=== PATIENT | male | born 1945 | race Caucasian/White ===

== ENCOUNTER → 2018-02-03 | Outpatient (CLI) | payer OTHER, BC ==
[~2018-02-03] VITALS: Ht 170.2 cm; Wt 98.1 kg
[~2018-02-03] MED LIST: AMLODIPINE BESY10 MG PO; ASPIR 8181 MG PO; COREG25 MG PO; GLUCOPHAGE1000 MG PO; HYDROCODONE-AP1 EAC6 PO; LANTUSSOLASTAR SQ; LASIX 40 MG TAB40 M2 PO; LEVOTHYROXINE0.2 M1 PO; LISINOPRIL10 MG PO; MAXZIDE-25 MG1 EACH PO; MOBIC15 MG PO; NAPROXEN375 MG PO; NEURONTIN 300300 M1 PO; NORCO 7.5-3251 EACH PO; OMEGA 3 1,0001 EACH PO; POTASSIUM20 PO; RED YEAST RICE600 MG PO; VITAMIN B122500 MCG PO; VITAMIN D32000 UNI1 PO; ZANTAC 150MG T150 MG PO
--- NOTE | ~2018-02-03 | HPC ---
[facility] [address] [place] [address] PAIN MANAGEMENT CONSULTATION Name: LIZY LIMA Room #: REG CL M..#: [id number] Admission: 02/03/18 Attend Phys: Karan Castaneda DO Discharge: Date of : 47 Report #: [id number] THIS REPORT FOR: //name// CC: Laila Castaneda DATE OF SERVICE: 02/03/2018 PAIN CLINIC NOTE The patient is a very pleasant 72-year-old gentleman being treated for lumbar radiculopathy status post decompressive laminectomy. Last seen in pain clinic on 12/08/2017. He was given a lumbar epidural injection at that time with significant improvement of baseline pain. The patient specifically notes 75% improvement for a month and a half. Pain gradually began to recur. He was able to go up and down stairs with no pain initially. Pain has begun to recur both legs and back without antecedent trauma or overuse, flare up about 4 weeks ago. He had been taking hydrocodone at night to start taking a little more frequently except to 2 or 3 a day with ongoing pain, low back, posterior thighs. Physically, he rates the pain a 5 on a VAS. Notes it is exacerbated with any and all axial loading and activity. Prior, the patient had been seen back in June 2016, single epidural injection afforded good relief at that time. PHYSICAL EXAMINATION: Notes a 72-year-old gentleman, BMI is 33.9 kilograms per meter squared, blood pressure 131/78, pulse 72, respirations 16. Rises from chair using armrest, diffuse tenderness across the low back. Gait is generally tandem, but he does have a positive straight leg raise on the right with slight decreased right hip flexion strength. He notes he has some ongoing knee pain and does have some osseous hypertrophy in the bilateral knees. Reviewing medical history, he does not have history of coronary artery disease; however, he does have multiple cardiac risk factors including hypertension and history of aortic valve replacement (bovine). ASSESSMENT: 1. Symptomatic lumbar radiculopathy status post decompressive laminectomy with ongoing lumbar radicular symptoms. Prior good relief with epidural injection in the past. 2. Osteoarthritis, bilateral knees. Discussed therapeutic options with the patient today. We have elected to start with naproxen 375 mg 1 tablet daily with coronary angioplasty versus excisional atherectomy trial. The patient uses it 3-4/7 days on a nondaily basis. Naproxen sodium tended to be the most [facility] [address] [place] [address] PAIN MANAGEMENT CONSULTATION Name: LIZY LIMA Room #: REG NELLI Parker#: [id number] Admission: 02/03/18 Attend Phys: Karan Castaneda DO Discharge: Date of : 47 Report #: [id number] cardiac friendly of the NSAID agents and any cardiac risk tended to be mitigated by nondaily use. RECOMMENDATIONS: 1. Epidural injection under fluoroscopy today at L4-L5 for the lumbar radicular pain status post decompressive laminectomy. 2. Follow up simply as needed. PROCEDURE: Lumbar epidural injection under fluoroscopy. PROCEDURE NOTE: After both written and informed consent to include risk of spinal cord damage, increased pain, weakness and dural puncture, the patient was taken to the fluoroscopy suite, placed in the prone position. After sterile prep and drape, a skin wheal with lidocaine was raised. A 22-gauge epidural Tuohy needle was inserted in the midline at L5-S1 with good loss to resistance. Negative aspiration for cerebrospinal fluid or blood was noted. Then 1 mL of Omnipaque under biplanar fluoroscopy showed good spread within the epidural space. This was followed with 80 mg of triamcinolone plus 1 mL of 1.5% preservative-free Xylocaine, 0.5 mL Xylocaine was then injected to flush the needle; it was removed. The patient was monitored for an appropriate period of time and discharged in good and stable condition. <ELECTRONICALLY SIGNED> By: Karan Castaneda DO 02/08/18 0725 1604 [id number] Karan Castaneda DO /nt
[2018-02-03 09:20] VITALS: BP 131/78
== END | disposition home or self-care (01) ==
LOC: PAIN 07:37
DX: M54.16 Radiculopathy, lumbar region (principal); G89.29 Other chronic pain; M17.0 Bilateral primary osteoarthritis of knee; I10 Essential (primary) hypertension; I25.10 Atherosclerotic heart disease of native coronary artery without angina pectoris; Z79.01 Long term (current) use of anticoagulants; Z95.2 Presence of prosthetic heart valve; Z79.82 Long term (current) use of aspirin; Z79.899 Other long term (current) drug therapy; Z98.890 Other specified postprocedural states; Z79.891 Long term (current) use of opiate analgesic

== ENCOUNTER → 2018-08-15 | Outpatient (CLI) | payer OTHER, BC ==
[~2018-08-15] VITALS: Ht 170.2 cm; Wt 99.5 kg
[~2018-08-15] MED LIST changes: +AMITRIPTYLINE H10 M3 PO; -LISINOPRIL10 MG PO; +LISINOPRIL20 MG PO; +OMEPRAZOLE 20 M20 M1 PO; +TRAMADOL 50 MG50 MG PO
--- NOTE | ~2018-08-15 | HPC ---
[facility] [address] [place] [address] PAIN MANAGEMENT CONSULTATION Name: LIZY LIMA [id number] Admission: 08/15/18 Attend Phys: Joseluis Castaneda DO Discharge: Date of : 47 Report #: [id number] THIS REPORT FOR: //name// CC: Joseluis Laers Margie DATE OF SERVICE: 08/15/2018 REFERRING PHYSICIAN: Laila Van MD. CHIEF COMPLAINT: Low back pain, lower extremity pain and paresthesias. HISTORY OF PRESENT ILLNESS: As you know, the patient is a 72-year-old male who returns today in followup visit requesting to undergo next in the series of lumbar epidural injections. The patient, as you are aware, was followed by my partner, Dr. Karan Castaneda until Dr. Castaneda discontinued practice. He was then transferred to my service to continue treatment with lumbar epidural injections. He returns today in followup visit indicating pain level of 5/10, states pain begins in low back, radiates to bilateral legs and anterior thighs. He states his pain is chronic in nature, describes the pain as constant, sharp, dull, aching, burning, numbness and tingling, exacerbated with sitting, improves with pain medications and epidural injections. He returns today in followup visit to undergo next in the series of epidural injections in hopes of improving pain. He denies new injury, new trauma or any changes in medical history since previous visits. ALLERGIES: No known drug allergies. CURRENT MEDICATIONS: Tramadol, omeprazole, amitriptyline, naproxen, hydrocodone, furosemide, gabapentin, cholecalciferol, aspirin, cyanocobalamin, omega-3 fish oil, insulin, metformin, red yeast rice extract, amlodipine, potassium, triamterene/hydrochlorothiazide, carvedilol, lisinopril and levothyroxine. SOCIAL HISTORY: The patient denies tobacco, alcohol, IV or illicit drug use. He is unaccompanied today. IMAGING: No new imaging available. PQRS: The patient has osteoarthritic changes of low back, bilateral knees. No rheumatoid arthritis. He is placing pain intensity of 5/10. He is not a fall risk, has not had a fall in the last 3 months. He is not on blood thinners. He is treated for hypertension. He has been on opiates for an extended period of time. He has a low risk for opioid addiction. He is placing pain impact tool at 24/70 indicating [id number] interference of daily activities [address] [address] PAIN MANAGEMENT CONSULTATION Name: LIZY LIMA Room #: REG CLI ..#: [id number] Admission: 08/15/18 Attend Phys: Joseluis Castaneda DO Discharge: Date of : 47 Report #: [id number] to pain. PHYSICAL EXAMINATION: VITAL SIGNS: Blood pressure 129/77, pulse 75, respiratory rate 16 and unlabored. The patient is 97% on room air. Height 5 feet 7 inches tall, weight 219.4 pounds, BMI calculated 34.4. GENERAL: Well-developed, well-nourished, well-hydrated 72-year-old male appearing stated age, placing current pain score at approximately 5/10. HEENT: Normocephalic, atraumatic. Pupils equal, round, reactive to light. EXTREMITIES: Show no clubbing, no cyanosis, no edema. MUSCULOSKELETAL: Lower extremity strength appears equal and symmetrical 5/5, intact to light touch from L1 through S2 dermatomes. Seated straight leg raising negative. Supine straight leg raising positive right. AMAYA test negative. Gait mildly antalgic. ASSESSMENT: 1. Symptomatic lumbar radiculopathy. 2. Lumbosacral spondylosis with radiculopathy. 3. Lumbar degeneration. 4. Chronic intractable pain. PLAN: 1. The patient returns today in followup visit requesting to undergo epidural injection under fluoroscopic guidance for which the patient has seen good efficacy in the past. He has been advised of the risks and the benefits of repeating epidural injection, states understood and wished to proceed. 2. No medication changes made at today's visit. The patient will continue current medical therapy as previously prescribed. 3. We will see the patient back in followup visit on an as needed basis for possible next in the series of epidural injections. PROCEDURE NOTE DESCRIPTION OF PROCEDURE: L5-S1 paramedian epidural steroid injection under fluoroscopic guidance. After obtaining written consent, the patient was taken back to fluoroscopy suite, placed in prone position with pillow under abdomen to decrease lumbar lordosis. Skin overlying lumbosacral area prepped and draped in aseptic fashion. Lumbar intervertebral spaces were identified by AP fluoroscopy. Skin and subcutaneous tissue overlying target site of injection was anesthetized with 3 mL of 1% lidocaine. A 20-gauge 3-1/2 inch Tuohy needle advanced under fluoroscopic guidance towards the epidural space utilizing a paramedian approach. Epidural space identified using loss of resistance to air technique. After negative aspiration for heme [facility] [address] [place] [address] PAIN MANAGEMENT CONSULTATION Name: LIZY LIMA Room #: REG CLNasir Parker#: [id number] Admission: 08/15/18 Attend Phys: Joseluis Castaneda DO Discharge: Date of : 47 Report #: [id number] or cerebrospinal fluid, 1 mL of Isovue injected. Lumbar epidurogram confirmed using both AP and lateral fluoroscopy. After negative aspiration for heme or cerebrospinal fluid, 5 mL of a solution containing 2 mL 40 mg per mL, 80 mg total triamcinolone, 3 mL lidocaine 1% injected slowly. Needle retracted longterm, flushed with 1 mL of 1% lidocaine and then removed. Sterile bandage placed over injection site. No new motor deficits present in lower extremity following procedure. The patient tolerated the procedure well, carefully escorted to recovery room in stable condition. No apparent complications. After meeting discharge criteria, the patient discharged home. By: [id number] Joseluis Castaneda DO /nt
[2018-08-15 09:54] VITALS: BP 129/77
== END | disposition home or self-care (01) ==
LOC: PAIN 08-11 10:54
DX: M51.16 Intervertebral disc disorders with radiculopathy, lumbar region (principal); M47.27 Other spondylosis with radiculopathy, lumbosacral region; G89.29 Other chronic pain; I10 Essential (primary) hypertension; M19.90 Unspecified osteoarthritis, unspecified site; Z79.899 Other long term (current) drug therapy; Z79.891 Long term (current) use of opiate analgesic; Z98.890 Other specified postprocedural states; Z79.82 Long term (current) use of aspirin

== ENCOUNTER → 2018-08-29 | Outpatient (CLI) | payer OTHER, BC ==
[~2018-08-29] VITALS: Ht 170.2 cm; Wt 98.7 kg
[~2018-08-29] MED LIST changes: +DICLOFENAC POTA50 MG PO
--- NOTE | ~2018-08-29 | HPC ---
[facility] [address] [place] [address] PAIN MANAGEMENT CONSULTATION Name: LIZY LIMA [id number] Admission: 08/29/18 Attend Phys: Joseluis Castaneda DO Discharge: Date of : 47 Report #: [id number] THIS REPORT FOR: //name// CC: Joseluis Hanson DATE OF SERVICE: 08/29/2018 CHIEF COMPLAINT: Low back pain, lower extremity pain with paresthesias. HISTORY OF PRESENT ILLNESS: As you know, the patient is a very pleasant 72-year-old male who returns today in followup visit having received excellent benefit with previous epidural injection. He is now placing pain at 3/10, but indicates pain is just over his knees, right greater than left. He reports improvement of symptoms of greater than 80% with the epidural injection provided at last visit. He is very pleased with response to this epidural injection, returning in followup visit to discuss treatment options for his bilateral knee pain due to osteoarthritis and what residual low back symptoms he has remaining. ALLERGIES: No known drug allergies. CURRENT MEDICATIONS: Tramadol, omeprazole, amitriptyline, naproxen, hydrocodone, furosemide, gabapentin, cholecalciferol, aspirin, cyanocobalamin, omega 3 fish oil, insulin, metformin, red yeast rice extract, amlodipine, potassium, triamterene/hydrochlorothiazide, carvedilol, lisinopril and levothyroxine. SOCIAL HISTORY: The patient denies tobacco, alcohol, IV or illicit drug use. He is unaccompanied today. IMAGING: No new imaging available. PQRS: The patient has known arthritic changes in the low back, bilateral knees. No rheumatoid arthritis. He is placing pain intensity today around 3/10. He is not a fall risk, has not had a fall in the last 3 months. He is not on blood thinners. He is treated for hypertension. He is on opioids, has been for an extended period of time and has a low risk for opioid addiction. He is placing pain impact score at 10/70. Mild interference of daily activities secondary to pain. PHYSICAL EXAMINATION: VITAL SIGNS: Blood pressure 115/71, pulse 73, respiratory rate 16 and unlabored, the patient is 96% on room air. Height 5 feet 7 inches tall, weight 217.6 pounds, BMI calculated 34.1. GENERAL: Well-developed, well-nourished, well-hydrated 72-year-old male [facility] [address] [place] [address] PAIN MANAGEMENT CONSULTATION Name: LIZY LIMA Room #: REG CLI [facility].#: [id number] Admission: 08/29/18 Attend Phys: Joseluis Castaneda DO Discharge: Date of : 47 Report #: [id number] appearing stated age. He is placing current pain score at 3/10 bilateral knees. HEENT: Normocephalic, atraumatic. Pupils equal, round, reactive to light. Extraocular muscles are intact. EXTREMITIES: Show no clubbing, no cyanosis, no edema. MUSCULOSKELETAL: Lower extremity strength appears symmetrical 5/5, intact to light touch from L1 through S2 dermatomes. Seated straight leg raising negative. Supine straight leg raising mildly positive on right. Og's test negative. Gait mildly antalgic. Anterior and posterior drawer tests are negative. There is crepitus noted with active and passive range of motion of right knee greater than left. ASSESSMENT: 1. Symptomatic lumbar radiculopathy. 2. Lumbosacral spondylosis with radiculopathy. 3. Lumbar degeneration. 4. Osteoarthritis of the bilateral knees. 5. Chronic knee pain. 6. Chronic intractable pain. PLAN: 1. The patient returns today in followup visit indicating good efficacy with the epidural injection provided at our last visit. He is reporting 80% improvement in overall pain. At present, he wishes to delay the next in the series of epidural injections until which time, he needs to readdress the symptoms with an epidural injection. Given the fact he has 80% improvement in overall pain, we would recommend that we delay until which time his pain returns to an intolerable level. The patient is amenable and agreeable with that plan. 2. The patient is reporting bilateral knee pain, right greater than left. He has been advised he has severe arthritic changes on the right and fairly severe arthritic changes on the left. We have discussed today at length possible treatment options including medication management in the form of nonsteroidal anti-inflammatories orally. We talked about topical agents to be applied directly to the knee. We discussed intraarticular knee injections and surgical options. After reviewing risks and benefits of all proposed treatment options, the patient chose to make adjustments in Medication management. 3. The patient will be started on diclofenac potassium 50 mg dose 1 tab p.o. t.i.d., I have given the patient #90 tablets, releasing today, 4 weeks from today, 8 weeks from today, 3 months' worth of medication. The patient was advised to watch for side effects of dyspepsia, worsening of blood pressure, lower extremity edema. With the use of the therapy if he notes any side effects, discontinue immediately. 4. We will see the patient back in followup visit on an as needed basis for the [address] [address] PAIN MANAGEMENT CONSULTATION Name: LIZY LIMA Room #: REG [facility] Lucas.#: [id number] Admission: 08/29/18 Attend Phys: Joseluis Castaneda DO Discharge: Date of : 47 Report #: [id number] next in the series of epidural injections. I will also see him back for medication management if necessary. By: [id number] Joseluis Castaneda DO /nt
[2018-08-29 10:38] VITALS: BP 115/71
== END ==
LOC: PAIN 09:49
DX: M47.27 Other spondylosis with radiculopathy, lumbosacral region (principal); M17.0 Bilateral primary osteoarthritis of knee; G89.4 Chronic pain syndrome

== ENCOUNTER → 2021-05-26 | Outpatient (CLI) | payer OTHER, BC ==
[~2021-05-26] VITALS: Ht 170.2 cm; Wt 100.9 kg
[2021-05-26 10:57] VITALS: BP 142/68
--- NOTE | 2021-06-02 09:20 | HPC ---
[facility] [address] [place] [address] PAIN MANAGEMENT CONSULTATION Name: LIZY LIMA Room #: REG [facility] M.R.#: [id number] Admission: 05/26/21 Attend Phys: Joseluis Castaneda DO Discharge: Date of : 47 Report #: [id number] THIS REPORT FOR: cc: Luda Hanson MD, Sarah Beth MD Johnson, James E. DO ~ cc: Laila Van MD DATE OF SERVICE: 05/26/2021 CHIEF COMPLAINT: Low back pain, lower extremity pain with paresthesias. HISTORY OF PRESENT ILLNESS: As you know, the patient is a very pleasant 75-year-old male returning in followup visit with recurrent low back pain, bilateral lower extremity pain for which he places a pain score of 2/10. States pain is constant, sharp and dull, aching, burning, weakness when pain is present. He states that sitting tends to exacerbate symptoms. Pain medications and epidural injections tend to improve pain. The most recent epidural injection gave near 100% improvement in overall pain lasting for an almost 2-1/2 years. Unfortunately, his symptoms have reoccurred. No inciting injury or trauma. He has returned today to discuss the possibility of undergoing an epidural injection. ALLERGIES: No known drug allergies. CURRENT MEDICATIONS: Omeprazole 20 mg once a day, amitriptyline 10 mg once a day, naproxen 375 mg b.i.d., hydrocodone/acetaminophen 5/325 q.i.d. p.r.n. pain, furosemide 40 mg per day, gabapentin 300 mg t.i.d., cholecalciferol 2000 units once a day, cyanocobalamin 2500 mcg per day, Lantus 18 units subQ before bedtime, metformin 1000 mg b.i.d., amlodipine 10 mg once a day, potassium chloride 20 mEq once a day, triamterene/hydrochlorothiazide 37.5/25 once a day, carvedilol 25 mg per day, lisinopril 20 mg per day, levothyroxine 200 mcg per day. SOCIAL HISTORY: The patient denies tobacco, alcohol, IV or illicit drug use. He is unaccompanied at today's visit. IMAGING: No new imaging is available. PQRS: The patient has known arthritic changes of the lumbar spine, bilateral shoulders, and knees. No rheumatoid arthritis. He is placing current pain score today at approximately 2/10. He is not a fall risk, has not had a fall in last 3 months. He is not on blood thinners, but is treated for hypertension. He is on opioid medications chronically, has a low opiate addiction potential. Pain impact is 50 of 70, severe interference of daily activities secondary to pain. [address] [address] PAIN MANAGEMENT CONSULTATION Name: LIZY LIMA Room #: REG CLI ..#: [id number] Admission: 05/26/21 Attend Phys: Joseluis Castaneda DO Discharge: Date of : 47 Report #: [id number] PHYSICAL EXAMINATION: VITAL SIGNS: Blood pressure 142/68, pulse 79, respiratory rate 18 and unlabored. The patient 98% on room air. Height 5 feet 7 inches tall, weight 222.4 pounds, BMI calculated 34.8. GENERAL: Well-developed, well-nourished, well-hydrated 75-year-old male appearing stated age. He is in no acute distress. Awake, alert and oriented x 3. Current pain score 2/10. HEENT: Normocephalic, atraumatic. Pupils equal, round and responsive. Speech is fluent. He is deemed a good historian. He is wearing a mask in compliance with COVID-19 regulations. EXTREMITIES: Show no clubbing, no cyanosis, no edema. MUSCULOSKELETAL: Lower extremity strength appears symmetrical 5/5. Muscle bulk and tone is noted to be symmetrical. The patient does have perceived weakness in the lower extremities, though he is able to resist to full pressure. Seated straight leg raising negative. Supine straight leg raising positive on the right. Og's test is negative. Gait appears mildly antalgic favoring right lower extremity. ASSESSMENT: 1. Symptomatic lumbar radiculopathy. 2. Lumbosacral spondylosis with radiculopathy. 3. Lumbar degeneration. 4. Osteoarthritis. 5. Chronic knee pain. 6. Chronic intractable pain. PLAN: 1. The patient returns today in followup visit to undergo lumbar epidural injection under fluoroscopic guidance. He reports significant pain improvement lasting for years with the previous epidural injection. We are pleased to see he has done well with that injection. Returning today in followup visit to undergo the next in the series. The patient has been advised the risks and benefits of the procedure, states understood and wished to proceed. 2. No medication changes made at today's visit. The patient will continue current medical therapy as prior prescribed. 3. We will plan to see the patient back in followup visit on an as needed basis. We will be sending him for physical therapy twice a week for 6 weeks. This will help with his perceived weakness and improve his overall balance. He will begin that process immediately. 4. Plan to see the patient back in followup visit on an as needed basis. PROCEDURE NOTE DESCRIPTION OF PROCEDURE: L5-S1 parasagittal epidural steroid injection under fluoroscopic guidance. [place] [address] PAIN MANAGEMENT CONSULTATION Name: LIZY LIMA Room #: REG CL Lucas.#: [id number] Admission: 05/26/21 Attend Phys: Joseluis Castaneda DO Discharge: Date of : 47 Report #: [id number] After obtaining written consent, the patient was taken back to fluoroscopy suite, placed in prone position with pillow under abdomen to decrease lumbar lordosis. Skin overlying lumbosacral area then prepped and draped in aseptic fashion. The L5-S1 vertebral interspace identified by AP fluoroscopy. Skin and subcutaneous tissue overlying target site injection anesthetized with 3 mL 1% lidocaine. A 20 gauge 3-1/2 inch Tuohy needle advanced under fluoroscopic guidance towards the epidural space using a left parasagittal approach. Epidural space identified using loss of resistance to air technique. After negative aspiration for heme or cerebrospinal fluid, 1 mL of Omnipaque injected. Lumbar epidurogram confirmed using both AP and lateral fluoroscopy. After negative aspiration for heme or cerebrospinal fluid, 5 mL solution containing 2 mL 40 mg per mL 80 mg total triamcinolone along with 3 mL of lidocaine, 1% injected slowly. Needle retracted fci flushed with 1 mL of 1% lidocaine and removed. Sterile bandage placed over injection site. No new motor deficits present in lower extremity following procedure. The patient tolerated the procedure well, carefully escorted to recovery room in stable condition. No apparent complications. After meeting discharge criteria, the patient discharged home. <ELECTRONICALLY SIGNED> By: Joseluis Castaneda DO 06/02/21 0920 [id number] [id number] Joseluis Castaneda DO /nt
== END | disposition home or self-care (01) ==
LOC: PAIN 07:07
PROVIDERS: ATTEND Anesthesiology Pain Medicine
DX: M51.16 Intervertebral disc disorders with radiculopathy, lumbar region (principal); M47.27 Other spondylosis with radiculopathy, lumbosacral region; G89.29 Other chronic pain; I10 Essential (primary) hypertension; M19.90 Unspecified osteoarthritis, unspecified site; Z98.890 Other specified postprocedural states; Z79.899 Other long term (current) drug therapy; Z79.891 Long term (current) use of opiate analgesic